=== PATIENT | male | born 1940 | race Caucasian/White ===

== ENCOUNTER 2023-02-28 08:09 | Day surgery (SDC) | payer BC, MEDICARE ==
[~2023-02-28 08:09] MED LIST: Lactated Ringers 1,000 ML IV SCH; Sodium Chloride 0.9% 10 ML Syringe FLUSH PRN; Sodium Chloride 0.9% 10 ML Syringe FLUSH SCH
[2023-02-28 08:57] VITALS: PULSE 61
[2023-02-28] MEDS ORDERED: Ondansetron 4 MG/2 ML SDV IVPUSH PRN (09:21)
[2023-02-28] MEDS ORDERED: Midazolam 1 MG/ML 2 ML SDV ONE (09:39)
[2023-02-28] MEDS ORDERED: Lidocaine 1% 2 ML ONE (09:39)
[2023-02-28] MEDS ORDERED: Propofol 200 MG/20 ML SDV ONE ×2 (09:39)
[2023-02-28 14:55] VITALS: BP 110/78
== END 2023-02-28 15:10 | disposition home or self-care (01) ==
LOC: JD.SDS 08:09
PROVIDERS: ATTEND Family Medicine
DX: Z12.11 Encounter for screening for malignant neoplasm of colon (principal); D12.2 Benign neoplasm of ascending colon; K64.0 First degree hemorrhoids; E11.42 Type 2 diabetes mellitus with diabetic polyneuropathy; E11.22 Type 2 diabetes mellitus with diabetic chronic kidney disease; I12.9 Hypertensive chronic kidney disease with stage 1 through stage 4 chronic kidney disease, or unspecified chronic kidney disease; N18.31 Chronic kidney disease, stage 3a; E21.3 Hyperparathyroidism, unspecified; Z80.0 Family history of malignant neoplasm of digestive organs; Z79.84 Long term (current) use of oral hypoglycemic drugs; Z79.02 Long term (current) use of antithrombotics/antiplatelets; Z79.899 Other long term (current) drug therapy; Z88.1 Allergy status to other antibiotic agents; Z88.8 Allergy status to other drugs, medicaments and biological substances; Z98.890 Other specified postprocedural states; Z90.49 Acquired absence of other specified parts of digestive tract
CPT/HCPCS: 45380; J2250; J2704; J7120; 00811; 88305; 99100; J3490